=== PATIENT | male | born 1960 | race Caucasian/White ===

== ENCOUNTER 2018-10-10 08:58 | Outpatient (CLI) | payer BC ==
--- NOTE | 2018-10-10 10:25 | RAD ---
LEFT HIP TWO VIEWS: INDICATIONS: Inflammatory spondylopathy. FINDINGS: There is no evidence of fracture or dislocation of the left hip. There is mild heterotopic density. Mild osteoarthritis is present. IMPRESSION: No acute osseous abnormality of the left hip. POS: BERRY
--- NOTE | 2018-10-10 10:26 | RAD ---
RIGHT HIP TWO VIEWS: HISTORY: Inflammatory spondylopathy. Recent left hip injection. Pain. COMPARISON: None. FINDINGS: The contour of the femoral head is maintained. Joint space is preserved. The visualized bony pelvis is unremarkable. IMPRESSION: Unremarkable right hip two views. POS: CET
--- NOTE | 2018-10-10 10:27 | RAD ---
PELVIS ONE VIEW: HISTORY: Inflammatory spondylopathy. Recent left hip injection. Pain. COMPARISON: None. FINDINGS: The sacral ala are preserved. The sacroiliac joints are patent and symmetric. Intact bony pelvis. Contour of both femoral heads is maintained. Hip joint spaces are symmetric. IMPRESSION: Unremarkable one view pelvic radiograph. POS: CET
== END 2018-10-10 08:59 | disposition home or self-care (01) ==
LOC: BICRAD 08:58
PROVIDERS: ATTEND Internal Medicine Rheumatology
DX: M46.87 Other specified inflammatory spondylopathies, lumbosacral region (principal)
CPT/HCPCS: 72170

== ENCOUNTER 2025-07-07 06:18 | Day surgery (SDC) | payer BC, MEDICARE ==
[2025-07-06 12:19] VITALS: BMI 34.2
[2025-07-07] MEDS ORDERED: Ondansetron PF 4 MG/2 ML Vial ONE (07:27)
[2025-07-07] MEDS ORDERED: GLYCOPYRROLATE/PF 0.2 MG/ML VIAL ONE (07:27)
[2025-07-07 08:05] LABS: #Basophils Less than 0.03 10x3/uL (0.0-0.2); #Eosinophils 0.11 10x3/uL (0.0-0.7); #Monocytes 0.35 10x3/uL (0.11-0.59); #Neutrophils 2.99 10x3/uL (1.40-6.50); %Basophils 0.4 % (0.0-1.0); %Eosinophils 2.3 % (0.0-10.0); %Lymphocytes 27.2 % (21.0-51.0); %Monocytes 7.3 % (0.0-10.0); %Neutrophils 62.2 % (42.0-75.0); Hematocrit 45.3 % (42.0-52.0); Hemoglobin 14.9 g/dL (14.0-18.0); Mean Corpuscular Hemoglobin 32.3 pg (27.0-31.0); Mean Corpuscular Volume 98.1 fL (78.0-98.0); Platelet Count 110 10x3/uL (130-400); Red Blood Cell (RBC) Count 4.62 mill/uL (4.70-6.10); White Blood Cell (WBC) Count 4.81 10x3/uL (4.8-10.8)
[2025-07-07 08:14] LABS: ALT (SGPT) 35 U/L (Less than 45); AST (SGOT) 33 U/L (11-34); Albumin 4.3 g/dL (3.1-4.5); Alkaline Phosphatase 49 U/L (40-110); Anion Gap 17 mmol/L (10-20); BUN (Urea Nitrogen) 14 mg/dL (8.4-25.7); Bilirubin, Total 1.0 mg/dL (0.3-1.2); Calc. Creatinine Clearance 109 mL/min (70-130); Calcium 8.9 mg/dL (7.8-10.44); Carbon Dioxide 28 mmol/L (23-31); Chloride 102 mmol/L (98-107); Globulin 2.3 g/dL (2.4-3.5); Glucose 155 mg/dL (80-115); PTT 29.3 sec (22.9-36.1); Potassium 4.0 mmol/L (3.5-5.1); Sodium 143 mmol/L (136-145)
[2025-07-07 08:15] LABS: INR-International Normal Ratio 1.1; Prothrombin Time 13.9 sec (12.0-14.7)
[2025-07-07] MEDS ORDERED: PROPOFOL 200 MG/20 ML VIAL ONE (09:01)
[2025-07-07 09:18] LABS: Macrocytosis SLIGHT = 6-15 cells HPF (0-5); Platelet Adequacy Comment Platelets Decreased; Polychromasia SLIGHT = 2-3 cells HPF (0-2)
== END 2025-07-07 10:37 | disposition home or self-care (01) ==
LOC: SDC 06:18
PROVIDERS: ATTEND Internal Medicine Gastroenterology
PROC: 0DJD8ZZ Inspection of Lower Intestinal Tract, Via Natural or Artificial Opening Endoscopic (ICD-10-PCS; principal; 2025-07-07)
DX: K64.8 Other hemorrhoids (principal); I25.10 Atherosclerotic heart disease of native coronary artery without angina pectoris; I48.91 Unspecified atrial fibrillation; K21.9 Gastro-esophageal reflux disease without esophagitis; E11.9 Type 2 diabetes mellitus without complications; E78.00 Pure hypercholesterolemia, unspecified; Z86.0101 Personal history of adenomatous and serrated colon polyps; Z95.5 Presence of coronary angioplasty implant and graft; Z87.891 Personal history of nicotine dependence; Z88.0 Allergy status to penicillin; Z79.82 Long term (current) use of aspirin; Z79.02 Long term (current) use of antithrombotics/antiplatelets; Z79.01 Long term (current) use of anticoagulants; Z79.84 Long term (current) use of oral hypoglycemic drugs; Z79.85 Long-term (current) use of injectable non-insulin antidiabetic drugs; Z79.899 Other long term (current) drug therapy
CPT/HCPCS: 36415; 80053; 85025; 85610; 85730; 93005; 93010; J2250; J2405; J2704; J3490